=== PATIENT | male | born 1965 | race Two or more races ===

== ENCOUNTER 2017-12-29 05:27 | Emergency (ER) | payer BC, OTHER ==
[2017-12-29] MEDS: SUMAtriptan SUCC 6 MG/0.5 ML VIAL. SQ (06:39)
[2017-12-29] MEDS: MECLIZINE HCL 12.5 MG TABLET. PO (06:40)
[2017-12-29] MEDS: BUTALB/APAP/CAFEIN 50/325/40MG TABLET. PO (07:53)
== END 2017-12-29 07:57 | disposition home or self-care (01) ==
LOC: ER 05:27
DX: R42 Dizziness and giddiness (principal)
CPT/HCPCS: 96372; 99283; J3030; J8597

== ENCOUNTER 2018-04-22 16:19 | Emergency (ER) | payer SELFPAY ==
[~2018-04-22] VITALS: Ht 172.7 cm; Wt 88.5 kg
[~2018-04-22 16:19] MED LIST: BUTA1CAP31 PO; HYDR-963 PO; MECL25TA3 PO; METO-269 PO; TOPI25TA52 PO
[2018-04-22] MEDS ORDERED: IV NORMAL SALINE 1000ML BAG 1,000 ML IV ONE (17:15)
[2018-04-22 17:29] LABS: BASO # 0.1 x10^3/uL (0.0-0.2); BASO % 1 % (0-3); EOS # 0.1 x10^3/uL (0.0-0.7); EOS % 1 % (0-3); HEMATOCRIT 46.7 % (39.0-53.0); HEMOGLOBIN 16.1 g/dL (13.0-17.5); LYMPH # 2.6 x10^3/uL (1.0-4.8); LYMPH % 25 % (24-48); MEAN CORPUSCULAR HEMOGLOBIN 30 pg (25-35); MEAN CORPUSCULAR HGB CONC 34 g/dL (31-37); MEAN CORPUSCULAR VOLUME 87 fL (79-100); MONO # 0.8 x10^3/uL (0.0-1.1); MONO % 8 % (0-9); NEUT # 6.9 x10^3uL (1.8-7.7); NEUT % 66 % (31-73); PLATELET COUNT 247 x10^3/uL (140-400); RED BLOOD COUNT 5.39 x10^6/uL (4.30-5.70); RED CELL DISTRIBUTION WIDTH 14.2 % (11.5-14.5); WHITE BLOOD COUNT 10.5 x10^3/uL (4.0-11.0)
--- NOTE | 2018-04-22 17:33 | PHYS DOC ---
Past Medical History Past Medical History: Anxiety, Depression, Hypertension, Migraines Past Surgical History: No Surgical History Alcohol Use: None Drug Use: None Adult General Chief Complaint Chief Complaint: ANXIETY/PANIC ATTACK HPI HPI 52-year-old male presents to ER with complaints of feeling anxious and shaky. Patient reports he has had increased stress with financial issues and recent loss of job. Patient states he was seen by his doctor on Tuesday for decreased sleep, intermittent headache, and increased anxiety. Patient reports he was prescribed naproxen, magnesium, buspirone, amitriptyline, prednisone, and had his Zoloft increased from 50 mg to 100 mg. Patient reports he's been on Xanax for the past 2 years however his doctor took him off of that on Tuesday. Pt states he has history of headaches and is on Topamax which he took yesterday. Patient reports headaches are similar to previous ones he has experienced denying this being the worse type of headaches he has had. Patient reports he started the prednisone Tuesday the initial 40 mg dose and started the amitriptyline that day also. Patient states he has not taken the magnesium, naproxen, or the buspirone. Patient reports he took 3 amitriptyline to try and improve his sleep although only prescribed 50 mg at bedtime. Patient reports he brought a bottle of B12 yesterday thinking that would help relax him and started taking that yesterday afternoon and another dose today. Patient states after taking the B12 he had increased anxiety, diaphoresis, and felt shaky. Patient today denies headache, confusion, dizziness, chest pain, or palpitations. Patient denies daily smoking, illicit drug use, or alcohol. Patient reports history of anxiety and depression denies any suicidal ideation or uncontrollable behavior. Review of Systems Review of Systems Constitutional: Denies fever or chills. Denies lethargy. Reports generalized fatigue Eyes: Denies change in visual acuity, redness, or eye pain. HENT: Denies nasal congestion or sore throat [] Respiratory: Denies cough or shortness of breath [] Cardiovascular: Denies chest pain or palpitations GI: Denies abdominal pain, nausea, vomiting, bloody stools or diarrhea [] : Denies dysuria or hematuria [] Musculoskeletal: Denies back/neck pain or joint pain [] Integument: Denies rash, swelling, or skin lesions [] Neurologic: Denies headache today, focal weakness or sensory changes. Denies dizziness. Reports feeling shaky Psych: Reports feeling anxious and tense. Reports increased anxiety and depression denying any suicidal ideations. All other systems were reviewed and found to be within normal limits, except as documented in this note. Current Medications Current Medications Current Medications Medications (Trade) Dose Ordered Sig/Servando Start Time Stop Time Status Last Admin Dose Admin Lorazepam (Ativan) 1 mg 1X ONCE 04/22/18 17:15 04/22/18 17:17 DC 04/22/18 17:29 1 MG Sodium Chloride 1,000 ml @ 1,000 mls/hr 1X ONCE 04/22/18 17:15 04/22/18 18:14 DC 04/22/18 17:28 1,000 MLS/HR Allergies Allergies Allergies Coded Allergies Type Severity Reaction Last Updated Verified No Known Drug Allergies 02/17/15 No Physical Exam Physical Exam Constitutional: Well developed, well nourished, mild distress on initial exam with patient appearing anxious and shaky, non-toxic appearance. Clear speech HENT: Normocephalic, atraumatic, bilateral ears normal, mucous membranes pink and dry, no oral exudates, nose normal. [] Eyes: 3 mm PERRLA, nystagmus, EOMI-no eye pain with movement, conjunctiva normal , no discharge. [] Neck: Normal range of motion, no tenderness, supple, no stridor. [] Cardiovascular: Tachycardic heart rate and rhythm-heart rate 104 during initial exam, no murmur [] Lungs & Thorax: Bilateral breath sounds clear to auscultation. Respirations equal and nonlabored Abdomen: Bowel sounds normal, soft, no tenderness, no masses, no pulsatile masses. [] Skin: Warm, diaphoretic, no erythema, no rash. [] Back: No tenderness, no CVA tenderness. [] Extremities: No tenderness, no cyanosis, no clubbing, ROM intact, no edema. [] Neurologic: Alert and oriented X 3, normal motor function, normal sensory function, no focal deficits noted. [] Psychologic: Affect normal, judgement normal, mood normal. During initial exam patient does become more anxious when discussing ongoing symptoms and financial strain. Denies suicidal ideations. No uncontrollable behavior Current Patient Data Vital Signs Vital Signs Date Time Temp Pulse Resp B/P (MAP) Pulse Ox O2 Delivery O2 Flow Rate FiO2 04/22/18 17:00 98.9 98 22 163/96 (118) 97 Room Air 98.9 Lab Values Laboratory Tests Test 04/22/18 17:23 04/22/18 17:40 White Blood Count 10.5 x10^3/uL (4.0-11.0) Red Blood Count 5.39 x10^6/uL (4.30-5.70) Hemoglobin 16.1 g/dL (13.0-17.5) Hematocrit 46.7 % (39.0-53.0) Mean Corpuscular Volume 87 fL (79-100) Mean Corpuscular Hemoglobin 30 pg (25-35) Mean Corpuscular Hemoglobin Concent 34 g/dL (31-37) Red Cell Distribution Width 14.2 % (11.5-14.5) Platelet Count 247 x10^3/uL (140-400) Neutrophils (%) (Auto) 66 % (31-73) Lymphocytes (%) (Auto) 25 % (24-48) Monocytes (%) (Auto) 8 % (0-9) Eosinophils (%) (Auto) 1 % (0-3) Basophils (%) (Auto) 1 % (0-3) Neutrophils # (Auto) 6.9 x10^3uL (1.8-7.7) Lymphocytes # (Auto) 2.6 x10^3/uL (1.0-4.8) Monocytes # (Auto) 0.8 x10^3/uL (0.0-1.1) Eosinophils # (Auto) 0.1 x10^3/uL (0.0-0.7) Basophils # (Auto) 0.1 x10^3/uL (0.0-0.2) Sodium Level 142 mmol/L (136-145) Potassium Level 3.7 mmol/L (3.5-5.1) Chloride Level 104 mmol/L (98-107) Carbon Dioxide Level 26 mmol/L (21-32) Anion Gap 12 (6-14) Blood Urea Nitrogen 15 mg/dL (8-26) Creatinine 1.0 mg/dL (0.7-1.3) Estimated GFR (Cockcroft-Gault) 78.8 BUN/Creatinine Ratio 15 (6-20) Glucose Level 106 mg/dL (70-99) H Calcium Level 9.1 mg/dL (8.5-10.1) Magnesium Level 2.2 mg/dL (1.8-2.4) Total Bilirubin 0.6 mg/dL (0.2-1.0) Aspartate Amino Transferase (AST) 15 U/L (15-37) Alanine Aminotransferase (ALT) 26 U/L (16-63) Alkaline Phosphatase 64 U/L (46-116) Troponin I Quantitative < 0.017 ng/mL (0.000-0.055) Total Protein 7.8 g/dL (6.4-8.2) Albumin 3.9 g/dL (3.4-5.0) Albumin/Globulin Ratio 1.0 (1.0-1.7) Urine Collection Type Unknown Urine Color Yellow Urine Clarity Clear Urine pH 6.5 Urine Specific [place] 1.020 Urine Protein Negative mg/dL (NEG-TRACE) Urine Glucose (UA) Negative mg/dL (NEG) Urine Ketones (Stick) Negative mg/dL (NEG) Urine Blood Negative (NEG) Urine Nitrite Negative (NEG) Urine Bilirubin Negative (NEG) Urine Urobilinogen Dipstick 0.2 mg/dL (0.2 mg/dL) Urine Leukocyte Esterase Negative (NEG) Urine RBC 0 /HPF (0-2) Urine WBC 0 /HPF (0-4) Urine Squamous Epithelial Cells None /LPF Urine Bacteria 0 /HPF (0-FEW) Urine Mucus Marked /LPF Laboratory Tests 04/22/18 17:23 Laboratory Tests 04/22/18 17:23 EKG EKG [] Radiology/Procedures Radiology/Procedures [] Course & Med Decision Making Course & Med Decision Making Pertinent Labs reviewed. (See chart for details) 1820: Patient reports following IV fluids and dose of Ativan his symptoms have significantly improved. Patient is in no visible distress and reports his anxiety has subsided although during discussion the he is still slightly anxious while discussing his presenting symptoms. Patient denies any chest pain or palpitations. Patient denies headache, dizziness, or confusion. Discussed test results with the EKG showing no acute ST elevation or STEMI and troponin < 0.017; labs normal limits and UA unremarkable. In-depth conversation was had with patient regarding prescriptions he received this week and his OTC B12. Discussed medications that he would not take including Rxs of Prednisone, Buspirone, magnesium, or the OTC B12. Discussed amitriptyline and patient reports he plans to continue that medication at bedtime to see if he is sleeping regiment improves. Patient is prescribed 2 tablets at bedtime discussed not taking additional medications if he is unable to sleep and to attempt to find other activities which may help his sleep pattern. Patient was advised to increase his Zoloft on Tuesday to 150 mg however patient felt that dose was too high so he has continued at 50mg which he will continue. Pt has Rx' d Topamax for CONCEPCION PRN- which he was Rx'd yrs ago by neurologist- he will continue this as Rx'd. Pt will continue his Rx'd lisinopril. Patient encouraged to eat well-balanced meals and drink plenty of fluids as he had reported his fluid intake was down throughout the week. Strictly advised on signs and symptoms to return to ER for or seek medical attention for. Patient continues to deny any suicidal ideations. Patient is cooperative and has had no on uncontrollable behavior. Patient reports multiple times through this discussion he is feeling much better than at time of arrival. Discharge instructions were discussed. Will provide additional clinic and physician options for follow-up purposes with discharge paperwork. Dragon Disclaimer Dragon Disclaimer This electronic medical record was generated, in whole or in part, using a voice recognition dictation system. Departure Departure Impression: Primary Impression: Anxiety and depression Disposition: 01 HOME, SELF-CARE Condition: STABLE Referrals: NO PCP (PCP) Patient Instructions: Anxiety and Panic Attacks Additional Instructions: Stop taking the prednisone, B12, magnesium, and buspirone. Continue taking the Lisinopril, Topamax, and amitriptyline as prescribed- do not take additional pills. Drink plenty of water and eat well balanced meals. Follow-up with primary doctor in next 5-7 days for re-evaluation. Sooner with any concerns or worsening symptoms- or return to Emergency Department. If your anxiety worsens you can take your prescribed xanax and if symptoms do not improve then seek medical care. YELENA MAYA MAINTENANCE TECH Apr 22, 2018 17:33
[2018-04-22 17:38] LABS: CALCIUM 9.1 mg/dL (8.5-10.1); GFR 78.8; POTASSIUM 3.7 mmol/L (3.5-5.1)
[2018-04-22 17:44] LABS: ALBUMIN 3.9 g/dL (3.4-5.0); MAGNESIUM 2.2 mg/dL (1.8-2.4); TOTAL BILIRUBIN 0.6 mg/dL (0.2-1.0); TOTAL PROTEIN 7.8 g/dL (6.4-8.2)
[2018-04-22 17:48] LABS: BILIRUBIN,URINE NEGATIVE (NEG); CLARITY,URINE CLEAR; COLOR,URINE YELLOW; NITRITE,URINE NEGATIVE (NEG); PH,URINE 6.5; PROTEIN,URINE NEGATIVE (NEG-TRACE); UROBILINOGEN,URINE 0.2 mg/dL (0.2 mg/dL)
[2018-04-22 17:55] LABS: BACTERIA,URINE 0 /HPF (0-FEW); RBC,URINE 0 /HPF (0-2); WBC,URINE 0 /HPF (0-4)
[2018-04-22 19:00] VITALS: BP 149/89
--- NOTE | 2018-04-24 06:50 | EKG ---
[facility] [address] [place] [address] Test Date: 2018-04-22 Test Time: 17:31:10 Pat Name: MADY MIRANDA Department: Room: Gender: M Group Billing Coordinator: : 1965 Requested By: YELENA MAYA Order Number: [id number] Reading MD: Carson Kramer MD Measurements Intervals [place] Rate: 91 P: 42 ID: [id number] QRS: 9 QRSD: 82 T: 48 QT: 338 QTc: 422 Interpretive Statements SINUS RHYTHM Electronically Signed On 04-26-2018 12:06:06 CDT by Carson Kramer MD
== END 2018-04-22 19:25 | disposition home or self-care (01) ==
LOC: ER 16:19
DX: F41.8 Other specified anxiety disorders (principal); I10 Essential (primary) hypertension; G43.909 Migraine, unspecified, not intractable, without status migrainosus; R00.0 Tachycardia, unspecified; R61 Generalized hyperhidrosis
CPT/HCPCS: 36415; 80053; 81001; 83735; 84484; 85025; 93005; 96374; 99285; J2060; J7030

== ENCOUNTER → 2019-10-11 | Outpatient (CLI) | payer BC ==
[~2019-10-11] MED LIST changes: +HYDR-3135 PO; -HYDR-963 PO; +MECL-75 PO; -MECL25TA3 PO
[2019-10-11 16:27] LABS: BASO # 0.1 x10^3/uL (0.0-0.2); BASO % 1 % (0-3); EOS # 0.6 x10^3/uL (0.0-0.7); EOS % 6 % (0-3); HEMATOCRIT 45.7 % (39.0-53.0); HEMOGLOBIN 15.7 g/dL (13.0-17.5); LYMPH # 3.2 x10^3/uL (1.0-4.8); LYMPH % 33 % (24-48); MEAN CORPUSCULAR HEMOGLOBIN 29 pg (25-35); MEAN CORPUSCULAR HGB CONC 34 g/dL (31-37); MEAN CORPUSCULAR VOLUME 86 fL (79-100); MONO # 0.7 x10^3/uL (0.0-1.1); MONO % 7 % (0-9); NEUT # 5.3 x10^3/uL (1.8-7.7); NEUT % 54 % (31-73); PLATELET COUNT 268 x10^3/uL (140-400); RED BLOOD COUNT 5.34 x10^6/uL (4.30-5.70); RED CELL DISTRIBUTION WIDTH 13.6 % (11.5-14.5); WHITE BLOOD COUNT 9.8 x10^3/uL (4.0-11.0)
[2019-10-11 16:50] LABS: ALBUMIN 3.8 g/dL (3.4-5.0); ALBUMIN/GLOBULIN RATIO 1.1 (1.0-1.7); AMPHETAMINE/METHAMPHETAMINE NEG (NEG); BARBITURATES NEG (NEG); BENZODIAZEPINES NEG (NEG); CALCIUM 8.2 mg/dL (8.5-10.1); CANNABINOIDS NEG (NEG); COCAINE NEG (NEG); CREATININE 1.1 mg/dL (0.7-1.3); GFR 70.3; METHADONE NEG (NEG); OPIATES NEG (NEG); PHENCYCLIDINE NEG (NEG); POTASSIUM 3.8 mmol/L (3.5-5.1); TOTAL BILIRUBIN 0.4 mg/dL (0.2-1.0); TOTAL PROTEIN 7.4 g/dL (6.4-8.2)
== END ==
LOC: LAB 15:56
PROVIDERS: ATTEND Psychiatry & Neurology Neurology
DX: G43.719 Chronic migraine without aura, intractable, without status migrainosus (principal)
CPT/HCPCS: 36415; 80053; 80307; 85025; 85651

== ENCOUNTER 2021-07-22 19:44 | Emergency (ER) | payer BC | END 2021-07-22 21:36 | disposition left against medical advice (07) | LOC: ER 19:44 | DX: R50.9 Fever, unspecified (principal); Z53.21 Procedure and treatment not carried out due to patient leaving prior to being seen by health care provider ==